=== PATIENT | female | born 1980 ===

== ENCOUNTER 2018-05-01 08:35 | Day surgery (SDC) | payer OTHER ==
[~2018-05-01] VITALS: Ht 162.6 cm; Wt 63.0 kg
[~2018-05-01 08:35] MED LIST: TAPAZOLE5 M1 PO
[2018-05-02] MEDS ORDERED: SYNTHROID100 MCG PO (09:03)
[2018-05-02] MEDS ORDERED: PERCOCET 5-3251 EACH PO (09:05)
[2018-05-02] MEDS ORDERED: CALCITRIOL0.5 MCG PO (09:08)
== END 2018-05-02 09:00 | disposition home or self-care (01) ==
LOC: CIR.AMB 08:35 → SURH 13:58 → CIR.AMB 13:58 → SURH 05-02 10:45
DX: D34 Benign neoplasm of thyroid gland (principal)